=== PATIENT | male | born 1980 | race Caucasian/White ===

== ENCOUNTER 2018-12-12 20:21 | Emergency (ER) | payer OTHER ==
[~2018-12-12] VITALS: Ht 167.6 cm; Wt 83.9 kg
[2018-12-12 21:05] LABS: ABSOLUTE BASOPHILS 0.1 thou/uL (0.0-0.2); ABSOLUTE EOSINOPHILS 0.2 thou/uL (0.0-0.7); ABSOLUTE LYMPHOCYTES 1.9 thou/uL (0.8-5.3); ABSOLUTE MONOCYTES 0.5 thou/uL (0.0-1.2); ABSOLUTE NEUTROPHILS 6.2 thou/uL (1.6-8.1); BASOPHILS 0.6 %; EOSINOPHILS 2.7 %; HEMATOCRIT 47.3 % (42.0-52.0); HEMOGLOBIN 16.6 gm/dL (14.0-18.0); LYMPHOCYTES 21.7 %; MCH 29.4 pg (26.0-34.0); MCV 84.1 fL (80.0-100.0); MONOCYTES 5.7 %; MPV 8.1 fl. (7.2-11.1); NUCLEATED RBCS 0 /100WBC; PLATELET COUNT* 183 thou/uL (150-400); POLYS 69.3 %; RBC 5.63 mil/uL (4.50-6.00); WBC 8.9 thou/uL (4.0-11.0)
[2018-12-12 21:18] LABS: ANION GAP 13 mmol/L (7-16); BUN 19 mg/dL (7-18); CHLORIDE 103 mmol/L (98-107); CO2 25 mmol/L (21-32); CREATININE 1.4 mg/dL (0.6-1.3); GLUCOSE 121 mg/dL (70-99); POTASSIUM 3.4 mmol/L (3.5-5.1); SODIUM 141 mmol/L (136-145)
[2018-12-12 21:28] LABS: ALBUMIN 4.4 g/dL (3.4-5.0); ALKALINE PHOSPHATASE 80 U/L (46-116); LIPASE 129 U/L (73-393); NT-PRO BRAIN NAT PEPTIDE 27 pg/mL (<300); SGOT 24 U/L (15-37); SGPT 31 U/L (30-65); TOTAL BILIRUBIN 1.2 mg/dL (<0.1-1.0); TOTAL PROTEIN 7.6 g/dL (6.4-8.2); TROPONIN-I LEVEL <0.06 ng/mL (<0.06)
[2018-12-12 23:00] VITALS: BP 131/75
--- NOTE | 2018-12-13 15:35 | EKG ---
[place] [address] ELECTROCARDIOGRAM REPORT Name: PATRICA ALVARENGA Room: [facility]#: [id number] Admission: 12/12/18 Attend Phys: Discharge: 12/12/18 Date of : 80 Report #: [id number] THIS REPORT FOR: //name// [facility] ED Test Date: 2018-12-12 Test Time: 20:31:56 Pat Name: PATRICA ALVARENGA Department: Room: Gender: M Paid Search Specialist: Anival AGOSTO : 1980 Requested By: Cj Garay Order Number: [id number] MD: Nikhil Peña Measurements Intervals [place] Rate: 84 P: 44 CA: 123 QRS: 12 QRSD: 79 T: 7 QT: 356 QTc: 421 Interpretive Statements Sinus rhythm Baseline wander in lead(s) V1 No previous ECG available for comparison Electronically Signed On 12-13-2018 15:35:39 CDT by Nikhil Peña [email or web address] <ELECTRONICALLY SIGNED> By: Nikhil Peña MD, [facility] 12/13/18 1535 30 30 Nikhil Peña MD, FACC /EPI
== END 2018-12-12 23:01 | disposition home or self-care (01) ==
LOC: M.ERS 20:21
PROVIDERS: Emergency Medicine
DX: R20.0 Anesthesia of skin (principal); R20.2 Paresthesia of skin